=== PATIENT | female | born 1930 | race Caucasian/White ===

== ENCOUNTER 2018-01-31 16:41 | Emergency (ER) | payer OTHER, BC ==
--- NOTE | 2018-01-31 17:08 | PDOC ---
History of Present Illness - History of Present Illness Initial Comments: 01/31/18 17:11 Ms. Santana is an 86 yo female w/ pmh of HTN, HLD, DMII, CVA, cervical cancer, and dementia who presents after fall earlier today. Per NH were patient is a resident ([facility]) patient fell from chair onto floor. NH called EMS for further evaluation who brought patient to ED. Allergies: Penicillins <Conrad Mcgee - Last Filed: 01/31/18 18:59> <Leonid Allred - Last Filed: 01/31/18 22:06> - General Chief Complaint: Injury Stated Complaint: FALL Time Seen by Provider: 01/31/18 17:06 Past History <Conrad Mcgee - Last Filed: 01/31/18 18:59> <Leonid Allred - Last Filed: 01/31/18 22:06> - Past Medical History Allergies/Adverse Reactions: Allergies Allergy/AdvReac Type Severity Reaction Status Date / Time Penicillins Allergy Verified 01/31/18 17:20 Home Medications: Ambulatory Orders Ascorbic Acid [Vitamin C -] 500 mg PO DAILY 01/31/18 Aspirin [ASA -] 81 mg PO DAILY 01/31/18 Atorvastatin Ca [Lipitor] 80 mg PO HS 01/31/18 Cephalexin Monohydrate [Keflex -] 500 mg PO BID #10 capsule 01/31/18 Ferrous Sulfate 325 mg PO DAILY 01/31/18 Labetalol HCl 100 mg PO BID 01/31/18 Lactose-Reduced Food [Ensure Liquid] 237 ml PO BID 01/31/18 Mirtazapine 7.5 mg PO BID 01/31/18 Sennosides/Docusate Sodium [Senexon-S Tablet] 2 tab PO HS 01/31/18 Review of Systems - Review of Systems Comments:: 01/31/18 17:12 Unable to obtain further <Conrad Mcgee - Last Filed: 01/31/18 18:59> *Physical Exam - Physical Exam Comments: 01/31/18 17:12 GENERAL: +Patient in position, in no acute distress at this time. Awake, alert, oriented to person only. HEAD: +3cm hematoma and 2cm abbrasion to mid forehead c/w fall. EYES: PERRLA, EOMI, sclera anicteric, conjunctiva clear ENT: Auricles normal inspection, hearing grossly normal, nares patent, oropharynx clear without exudates. Moist mucosa NECK: Normal ROM, supple, no lymphadenopathy, JVD, or masses LUNGS: No distress, clear to auscultation bilaterally HEART: Regular rate and rhythm, normal S1 and S2, no murmurs, rubs or gallops, peripheral pulses normal and equal bilaterally. ABDOMEN: Soft, nontender, normoactive bowel sounds. No guarding, no rebound. No masses EXTREMITIES: Normal inspection, Normal range of motion, no edema. No clubbing or cyanosis. NEUROLOGICAL: Cranial nerves II through XII grossly intact. Normal speech, no focal sensorimotor deficits SKIN: Warm, Dry, normal turgor, no rashes or lesions noted. <Conrad Mcgee - Last Filed: 01/31/18 18:59> - Vital Signs Last Vital Signs Temp Pulse Resp BP Pulse Ox 98.6 F 63 18 140/65 100 01/31/18 17:17 01/31/18 17:17 01/31/18 17:17 01/31/18 17:17 01/31/18 17:17 <Leonid Allred - Last Filed: 01/31/18 22:06> ED Treatment Course - LABORATORY CBC & Chemistry Diagram: 01/31/18 18:00 01/31/18 17:54 <Conrad Mcgee - Last Filed: 01/31/18 18:59> - LABORATORY CBC & Chemistry Diagram: 01/31/18 18:00 01/31/18 17:54 - ADDITIONAL ORDERS Additional order review: Laboratory Results 01/31/18 01/31/18 01/31/18 20:30 18:00 18:00 PT with INR 12.80 INR 1.13 Sodium Potassium Chloride Carbon Dioxide Anion Gap BUN Creatinine Creat Clearance w eGFR Random Glucose Calcium Total Bilirubin AST ALT Alkaline Phosphatase Creatine Kinase Troponin I Total Protein Albumin Urine Color Dkyellow Urine Appearance Clear Urine pH 6.0 Ur Specific [place] 1.025 Urine Protein Negative Urine Glucose (UA) Negative Urine Ketones Negative Urine Blood Negative Urine Nitrite Positive Urine Bilirubin Negative Urine Urobilinogen 4.0 e.u/dl H Ur Leukocyte Esterase Trace Urine WBC (Auto) 6 Urine RBC (Auto) 65 Ur Epithelial Cells Rare Urine Mucus Rare Urine Yeast Few Blood Type O POSITIVE Antibody Screen Negative 01/31/18 17:54 PT with INR INR Sodium 136 Potassium 4.7 Chloride 102 Carbon Dioxide 28 Anion Gap 6 L BUN 20 H Creatinine 0.6 Creat Clearance w eGFR > 60 Random Glucose 85 Calcium 8.2 L Total Bilirubin 0.2 AST 28 ALT 14 Alkaline Phosphatase 110 Creatine Kinase 42 Troponin I < 0.02 Total Protein 6.9 Albumin 1.7 L Urine Color Urine Appearance Urine pH Ur Specific [place] Urine Protein Urine Glucose (UA) Urine Ketones Urine Blood Urine Nitrite Urine Bilirubin Urine Urobilinogen Ur Leukocyte Esterase Urine WBC (Auto) Urine RBC (Auto) Ur Epithelial Cells Urine Mucus Urine Yeast Blood Type Antibody Screen 01/31/18 18:00 RBC 2.87 L MCV 89.0 MCHC 31.8 L RDW 14.5 MPV 9.3 Neutrophils % 86.2 H Lymphocytes % 8.4 Monocytes % 4.2 Eosinophils % 0.8 Basophils % 0.4 <Leonid Allred - Last Filed: 01/31/18 22:06> Medical Decision Making - Medical Decision Making 01/31/18 18:59 Ms. Chandler is an 87 yo female w/ pmh as described who presents for evaluation post fall. Head CT, CXR, EKG, cardiac and basic labs ordered for evaluation. Patient signed out to Dr. Allred for further evaluation. <Conrad Mcgee - Last Filed: 01/31/18 18:59> *DC/Admit/Observation/Transfer <Conrad Mcgee - Last Filed: 01/31/18 18:59> <Leonid Allred - Last Filed: 01/31/18 22:06> Diagnosis at time of Disposition: UTI (urinary tract infection) Qualifiers: Urinary tract infection type: site unspecified Hematuria presence: without hematuria Qualified Code(s): N39.0 - Urinary tract infection, site not specified - Discharge Dispostion Disposition: HOME Condition at time of disposition: Stable - Prescriptions Prescriptions: Cephalexin Monohydrate [Keflex -] 500 mg PO BID #10 capsule - Referrals Referrals: Subha Henry [Primary Care Provider] - - Patient Instructions Printed Discharge Instructions: DI for Urinary Tract Infection (UTI) Additional Instructions: Please return to the ER if you experience concerning or worsening symptoms including worsening fevers, chills, vomiting, or pain. Your lab results and head CT were normal here in the ER. Your urine shows that you have a urinary tract infection. We have sent a prescription to your pharmacy for antibiotics that should be taken twice a day for 5 days. Please call to schedule a follow up appointment with your primary care provider to discuss your ER visit and further management of your symptoms.
[2018-01-31 17:19] VITALS: BP 140/65; PULSE 63; TEMP 98.6; BMI 18.8
[2018-01-31 18:44] LABS: INR 1.13 (0.82-1.09); PROTHROMBIN TIME (PATIENT) 12.8 SEC (9.7-13.0)
[2018-01-31 18:53] LABS: ALBUMIN 1.7 g/dl (3.4-5.0); ANION GAP 6 (8-16); BILIRUBIN,TOTAL 0.2 mg/dL (0.2-1.0); BLOOD UREA NITROGEN 20 mg/dL (7-18); CALCIUM 8.2 mg/dL (8.5-10.1); CHLORIDE 102 mmol/L (98-107); CO2 28 mmol/L (21-32); CREATININE 0.6 mg/dL (0.55-1.02); GLUCOSE,RANDOM 85 mg/dL (74-106); SGPT/ALT 14 U/L (12-78); SODIUM 136 mmol/L (136-145); TOT PROT 6.9 g/dl (6.4-8.2)
[2018-01-31 19:16] LABS: BASO % 0.4 % (0-2.0); EOS % 0.8 % (0-4.5); HEMATOCRIT 25.6 % (32.4-45.2); HEMOGLOBIN 8.1 GM/dL (10.7-15.3); LYMPH % 8.4 % (8-40); MCH 28.3 pg (25.7-33.7); MCHC 31.8 g/dl (32.0-36.0); MEAN PLT VOLUME 9.3 fl (7.5-11.1); MONO % 4.2 % (3.8-10.2); NEUT % 86.2 % (42.8-82.8); PLATELET COUNT 371 K/MM3 (134-434); RBC 2.87 M/mm3 (3.60-5.2); RDW 14.5 % (11.6-15.6); WHITE BLOOD COUNT 12.6 K/mm3 (4.0-10.0)
[2018-01-31 20:42] LABS: ALK PHOS 110 U/L (45-117)
[2018-01-31 20:46] LABS: POTASSIUM 4.7 mmol/L (3.5-5.1); SGOT/AST 28 U/L (15-37)
[2018-01-31 21:13] LABS: URINE APPEARANCE CLEAR; URINE BILIRUBIN NEGATIVE (<2.0 mg/dL); URINE COLOR DKYELLOW; URINE GLUCOSE (UA) NEGATIVE (NEGATIVE); URINE KETONE NEGATIVE (NEGATIVE); URINE LEUK ESTERASE TRACE (NEGATIVE); URINE NITRITE POSITIVE (NEGATIVE); URINE PROTEIN NEGATIVE (NEGATIVE); URINE UROBILINOGEN 4.0 E.U/dl mg/dL (0.2-1.0)
[2018-01-31 21:23] LABS: EPI CELLS RARE /HPF (FEW); URINE MUCUS RARE; YEAST FEW
[2018-01-31] MEDS ORDERED: FLUCONAZOLE 100 MG TABLET (UD) PO ONE (21:45)
[2018-01-31] MEDS ORDERED: FLUCONAZOLE 100 MG TABLET (UD) ONE (22:04)
--- NOTE | 2018-01-31 22:45 | PDOC ---
Attending Attestation - HPI HPI: 01/31/18 22:49 The patient is a 86 year old cachectic female with a significant PMH of dementia, hypertension, hyperlipidemia, diabetes, CVA, and cervical ca who presents to the emergency department from [facility] via EMS s/p fall earlier today. As per EMS, the patient had fallen on the floor from her chair at her [place] [facility] and hit her head. She was brought in for further evaluation. The patient is slovenian speaking and denies any pain at time of exam. The patient is awake and oriented, she knows her own name. History from the patient is limited secondary to status. PCP: Dr. Henry - Physicial Exam PE: 01/31/18 22:50 GENERAL: 80 lbs Cachectic female, awake and oriented, patient knows her name. Well developed. No acute distress. HEENT:(+)3 cm hematoma, 2 cm abrasion to mid forehead. Normocephalic. PERRLA, EOMI. No conjunctival pallor. Sclera are non-icteric. Moist mucous membranes. Oropharynx is clear. NECK: Supple. Full ROM. No JVD. Carotid pulses 2+ and symmetric, without bruits. No thyromegaly. No lymphadenopathy. CARDIOVASCULAR: Regular rate and rhythm. No murmurs, rubs, or gallops. Distal pulses are 2+ and symmetric. PULMONARY: (+)crackles No evidence of respiratory distress. No wheezing, rales or rhonchi. ABDOMINAL: Flat abdomen, Soft. Non-tender. Non-distended. No rebound or guarding. No organomegaly. Normoactive bowel sounds. MUSCULOSKELETAL Normal range of motion at all joints. No bony deformities or tenderness. No CVA tenderness. EXTREMITIES: Moving all extremities. No obvious deformities. No cyanosis. No clubbing. No edema. No calf tenderness. SKIN: Warm and dry. Normal capillary refill. No rashes. No jaundice. NEUROLOGICAL: Alert, awake, appropriate. Cranial nerves 2-12 intact. No deficits to light touch and temperature in face, upper extremities and lower extremities. No motor deficits in the in face, upper extremities and lower extremities. Normoreflexic in the upper and lower extremities. Normal speech. Toes are down- going bilaterally. Gait is normal without ataxia. PSYCHIATRIC: Cooperative. Good eye contact. Appropriate mood and affect. Documentation prepared by Jean-Paul Martinez, acting as medical office assistant instructor for Blanquita Pelletier MD. <Jean-Paul Martinez - Last Filed: 01/31/18 22:49> - Resident Resident Name: Conrad Mcgee - ED Attending Attestation I have performed the following: I have examined & evaluated the patient, The case was reviewed & discussed with the resident, I agree w/resident's findings & plan, Exceptions are as noted - Medical Decision Making 01/31/18 23:09 ct scan head no acute intracranial pathology UA 6 wbc,+nitrite started antibiotics -called [facility] and spoke w nurse and a prescription for keflex was sent -spoke at length w daughter who is bedside and reviewed lab results pt does have h/o anemia and tonight her hgb=8.1 and he daughter states this is her baseline stool hemmocult negative <Blanquita Pelletier - Last Filed: 01/31/18 23:12>
--- NOTE | 2018-02-01 09:21 | PDOC ---
Patient Follow-up (Call Back) - Post ED Follow - Up Condition at time of discharge: Stable Disposition at time of original discharge: HOME - Disposition Additional Instructions/Notes: The pharmacist called. Does not want to prescribe keflex because of patient's PCN allergy. Sent rx for levaquin. Pharmacist called back. Initially sent 500mg BID; pharmacist noted incorrect dose. Changed to 500mg PO daily.
--- NOTE | 2018-02-01 11:42 | EKG ---
Test Reason : Blood Pressure : / mmHG Vent. Rate : 060 BPM Atrial Rate : 060 BPM P-R Int : 136 ms QRS Dur : 088 ms QT Int : 456 ms P-R-T Axes : 043 043 065 degrees QTc Int : 456 ms POOR DATA QUALITY, INTERPRETATION MAY BE ADVERSELY AFFECTED NORMAL SINUS RHYTHM ANTERIOR INFARCT , AGE UNDETERMINED ABNORMAL ECG NO PREVIOUS ECGS AVAILABLE Confirmed by LYNDON LAGOS, GIOVANI ([id number]) on 02/01/2018 11:42:13 AM Referred By: Confirmed By:GIOVANI HANEY MD
--- NOTE | 2018-02-04 07:10 | PDOC ---
Patient Follow-up (Call Back) - Post ED Follow - Up Condition at time of discharge: Stable Disposition at time of original discharge: HOME Reason for Call Back: Abnwl. Microbiology (Urine culture preliminary shows staphylcoccus coagulase-negative. Patient currently on Levaquin. Will await final report.)
--- NOTE | 2018-02-05 07:42 | PDOC ---
Patient Follow-up (Call Back) - Post ED Follow - Up Condition at time of discharge: Stable Disposition at time of original discharge: HOME Reason for Call Back: Abnwl. Microbiology (no final report. Will follow up)
--- NOTE | 2018-02-06 07:42 | PDOC ---
Patient Follow-up (Call Back) - Post ED Follow - Up Condition at time of discharge: Stable Disposition at time of original discharge: HOME Reason for Call Back: Abnwl. Microbiology - Disposition Rx Needed: Yes Additional Instructions/Notes: Patient was prescribed Keflex but not started because of PCN allergy. Patient was then started on Levaquin. Sensitivity resulted in only sensitive to Bactrim and Macrobid. Patient's creatinine clearance is >60 and renal function good so will place on Macrobid. Spoke with DELANO Hastings, at [facility] and instructed her to d/c the Levaquin and start on Macrobid.
== END 2018-02-01 01:06 | disposition home or self-care (01) ==
LOC: EDBD 16:41 → JER 16:41
DX: N39.0 Urinary tract infection, site not specified (principal); F03.90 Unspecified dementia, unspecified severity, without behavioral disturbance, psychotic disturbance, mood disturbance, and anxiety; I10 Essential (primary) hypertension; E78.5 Hyperlipidemia, unspecified; E11.9 Type 2 diabetes mellitus without complications; Z85.41 Personal history of malignant neoplasm of cervix uteri
CPT/HCPCS: 36415; 70450-TC; 80053; 81003; 81015; 82272; 82550; 84484; 85025; 85610; 86850; 86900; 86901; 87086; 87186; 93005; 93010; 99283-25